=== PATIENT | male | born 1965 | race Caucasian/White ===

== ENCOUNTER 2018-05-07 05:27 | Emergency (ER) | payer SELFPAY ==
[~2018-05-07] VITALS: Ht 157.5 cm; Wt 68.2 kg
[2018-05-07 05:33] VITALS: BP 134/74
[2018-05-07] MEDS ORDERED: SULF1TAB49 PO (06:46)
== END 2018-05-07 07:00 | disposition home or self-care (01) ==
LOC: ER 05:28
DX: L03.111 Cellulitis of right axilla (principal); F17.200 Nicotine dependence, unspecified, uncomplicated; F15.90 Other stimulant use, unspecified, uncomplicated
CPT/HCPCS: 99283

== ENCOUNTER 2018-08-07 21:07 | Emergency (ER) | payer OTHER ==
[~2018-08-07] VITALS: Ht 157.5 cm; Wt 69.5 kg
[2018-08-07 21:18] VITALS: BP 145/88
--- NOTE | 2018-08-07 23:39 | NUR ---
PT CALLED TO BE PLACED IN ROOM. HE IS CURRENTLY SLEEPING ON THE FLOOR IN THE ER LOBBY AND HAS TO BE AWAKENED BY STAFF TO BE BROUGHT BACK FOR A ROOM.
[2018-08-07] MEDS ORDERED: SULF1TAB49 PO (23:54)
== END 2018-08-08 00:08 | disposition home or self-care (01) ==
LOC: ER 21:08
DX: S51.802A Unspecified open wound of left forearm, initial encounter (principal); S51.801A Unspecified open wound of right forearm, initial encounter; F15.10 Other stimulant abuse, uncomplicated; Z59.0 Homelessness; X58.XXXA Exposure to other specified factors, initial encounter; Y93.89 Activity, other specified; Y92.89 Other specified places as the place of occurrence of the external cause; Y99.8 Other external cause status
CPT/HCPCS: 99283